=== PATIENT | female | born 1980 | race Two or more races ===

== ENCOUNTER 2019-10-03 14:40 | Emergency (ER) | payer MEDICAID ==
[~2019-10-03] VITALS: Ht 152.4 cm; Wt 61.7 kg
--- NOTE | 2019-10-03 14:42 | NUR ---
ED Nurse Note: Pt was [place] in by ambulance from grocery store s/p unwitnessed fall with RT sided impact on the ground, with complains of RT arm and LT hip pain. Pt is A&Ox4, gambian in speaking. Per EMS, pt denies dizziness, weakness nor head trauma. Pt's VSS, on RA, afebrile on triage. Placed on bed.
[2019-10-03 14:45] VITALS: BP 135/76
[2019-10-03] MEDS ORDERED: Ketorolac 30mg Inj IM ONE (15:00)
[2019-10-03] MEDS ORDERED: Methocarbamol 750mg tab ORAL ONE (15:00)
--- NOTE | 2019-10-03 15:19 | NUR ---
ED Nurse Note: pt was taken to CT, accompanied by tech.
--- NOTE | 2019-10-03 15:35 | NUR ---
ED Nurse Note: pt returned from ct on stable condition.
--- NOTE | 2019-10-03 17:05 | Emergency Room Report ---
History of Present Illness General Chief Complaint: Multiple Trauma/Fall Source: Patient Present Illness HPI 39-year-old female with no signal past medical history here status post fall. Reports that she slipped earlier and landed on her right forearm radiating pain in that area 10 out of 10. Also reports that she hit the back of her neck and lower back to the ground however denies any head injury or loss of consciousness. Rates the pain in neck and lower back 5 out of 10 without radiation. Patient is mobile and reports that the pain is now radiating down legs and denies any saddle paresthesia, urinary or bowel incontinence. Has not taken medication for symptom relief. Denies chest pain abdominal pain. Denies any vaginal bleeding. Denies and signs of waiver for further imaging. Allergies: Coded Allergies: No Known Allergies (Unverified , 10/03/19) COVID-19 Screening COVID-19 risk:Contact w/high r: No Has patient experienced blake: No COVID-19 Testing performed CERTIFIED NURSE AIDE: No Patient History Past Medical History: unable to obtain Past Surgical History: none Pertinent Family History: none Last Menstrual Period: UNK Immunizations: UTD Reviewed Nursing Documentation: PMH: Agreed; PSxH: Agreed Nursing Documentation-PMH Past Medical History: No Stated History Review of Systems All Other Systems: negative except mentioned in HPI Physical Exam Vital Signs Date Time Temp Pulse Resp B/P (MAP) Pulse Ox O2 Delivery O2 Flow Rate FiO2 10/03/19 14:36 98.8 85 17 135/76 (95) 96 Room Air Sp02 EP Interpretation: reviewed, normal General Appearance: normal inspection, alert, no apparent distress, GCS 15 Head: normocephalic, atraumatic Eyes: normal eye exam, PERRL, EOMI, lids + conjunctiva normal, no hyphema, no racoon eyes ENT: normal ENT inspection, TMs + canals normal, oropharynx normal, no roque signs Neck: normal inspection, supple/symm/no masses, trach midline, no bony tend, full range of motion without pain Respiratory: effort normal, no retractions, clear to auscultation, chest symmetrical, palpation of chest normal, speaking in full sentences Cardiovascular: regular rate, rhythm, no JVD Cardiovascular #2: 2+ carotid (R), 2+ carotid (L), 2+ radial (R), 2+ radial (L) , 2+ dorsalis pedis (R), 2+ dorsalis pedis (L) Gastrointestinal: normal inspection, non-tender, non-distended, no rebound/ guarding, normal bowel sounds Musculoskeletal: normal ROM, back normal, other - Right radial head tender to palpation Skin: no rash, no lacerations, normal palpation Lymphatic: normal inspection Neurologic: oriented x3, sensory intact, motor strength/tone normal, normal speech Psychiatric: normal inspection, memory normal, mood normal, no suicidal/ homicidal ideation Procedures Splinting Splinting : Consent: Verbal Location: Right forearm Hand-Made Type: plaster Splint: volar Pre-Proc Neuro Vasc Exam: normal Post-Proc Neuro Vasc Exam: normal Patient Tolerated: Well Complications: None Medical Decision Making PA Attestation All my diagnosis and treatment plans were reviewed ad discussed with my supervising physician Dr. Patrick Diagnostic Impression: Primary Impression: Radial head fracture Additional Impressions: Cervical strain Lumbar strain ER Course 39-year-old female with no signal past medical history here status post fall. Reports that she slipped earlier and landed on her right forearm radiating pain in that area 10 out of 10. Also reports that she hit the back of her neck and lower back to the ground however denies any head injury or loss of consciousness. Rates the pain in neck and lower back 5 out of 10 without radiation. Patient is mobile and reports that the pain is now radiating down legs and denies any saddle paresthesia, urinary or bowel incontinence. Has not taken medication for symptom relief. Denies chest pain abdominal pain. Denies any vaginal bleeding. Denies and signs of waiver for further imaging. Ddx considered but are not limited to: Lumbar spine sprain, strain, fracture, contusion, neuropathy, cervical sprain versus strain versus fracture, radial head fracture versus contusion versus sprain versus strain Vital signs: are WNL, pt. is afebrile H&PE are most consistent with: Radial head fracture, cervical strain, lumbar strain ORDERS: Lumbar CT scan, cervical spine CT scan, right forearm x-ray, ibuprofen, Robaxin ER intervention: Toradol, Tylenol, Robaxin. DISCHARGE: At this time pt. is stable for d/c to home. Will provide printed patient care instructions, and any necessary prescriptions. Care plan and follow up instructions have been discussed with the patient prior to discharge. Take medication as directed, follow primary care provider customer engineering specialist, if worsening symptoms return to the emergency room Other X-Ray Diagnostic Results Other X-Ray Diagnostic Results : X-Ray ordered: right forearm # of Views/Limited Vs Complete: 2 View Indication: Pain EP Interpretation: Yes Interpretation: no dislocation, no soft tissue swelling, other - fx radail head Impression: Other - fracture radial head Electronically Signed by: Omkar Romano PA-C CT/MRI/US Diagnostic Results CT/MRI/US Diagnostic Results #1: Imaging Test Ordered: CT C-spine no contrast Impression No acute changes CT/MRI/US Diagnostic Results #2: Imaging Test Ordered: CT L-spine no contrast Impression No acute changes Last Vital Signs Date Time Temp Pulse Resp B/P (MAP) Pulse Ox O2 Delivery O2 Flow Rate FiO2 10/03/19 15:28 98.8 10/03/19 14:45 17 135/76 96 Room Air 10/03/19 14:45 85 Disposition: HOME, SELF-CARE Condition: Stable Referrals: NOT CHOSEN IPA/,REFERRING (PCP) Patient Instructions: Cervical Strain and Sprain With [facility]hab[facility], Forearm Fracture With Rehab[facility], Lumbosacral Strain Additional Instructions: Take medication as directed, follow primary care provider customer engineering specialist , if worsening symptoms return to the emergency room Omkar Sorto Oct 03, 2019 17:05
--- NOTE | 2019-10-03 17:43 | Diagnostic Imaging Report ---
Indication: Neck pain status post injury Technique: CT cervical spine was performed utilizing automated exposure control without intravenous contrast material. Axial and coronal images were generated. CT dose: Total DLP 139.4 mGycm; CTDI vol 5.6 mGy Comparison: None Findings: No acute cervical spine fracture identified. There is nonspecific straightening of the cervical lordosis, without evidence of spondylolisthesis. Vertebral body heights are maintained; there is no evidence of compression fracture. There is no focus of significant bony central canal stenosis or bony foraminal narrowing. There is no prevertebral fluid collection or hematoma. Imaged airway is patent. The thyroid is normal in appearance. Imaged lung apices are clear. Mastoid air cells and visualized paranasal sinuses are clear. Imaged portions of the posterior fossa unremarkable in appearance. IMPRESSION: No evidence of acute cervical spine fracture. Nonspecific straightening of the cervical lordosis without evidence of spondylolisthesis. Findings may be related to positioning and/or muscle spasm. The CT scanner at [facility] is accredited by the [employer] and the scans are performed using protocols designed to limit radiation exposure to as low as reasonably achievable to attain images of sufficient resolution adequate for diagnostic evaluation.
--- NOTE | 2019-10-03 17:47 | Diagnostic Imaging Report ---
Indication: Back pain status post injury Technique: CT lumbar spine was performed utilizing automated exposure control without intravenous contrast material. Axial and coronal images were generated. CT dose: Total DLP 293.9 mGycm; CTDI vol 820 mGy Comparison: None Findings: There are 5 nonrib-bearing lumbar-type vertebral bodies, assuming 12 paired ribs. Total body heights are maintained; there is no evidence of compression fracture. Lumbar lordosis is maintained; there is no evidence of spondylolisthesis. There is no focus of significant bony central canal stenosis or bony foraminal narrowing. Tiny disc bulges noted at L4-5 and L5-S1 without associated significant/high-grade central canal or foraminal stenosis. Note that the discs and nerve roots are better evaluated on MRI, which can be obtained for more sensitive assessment as clinically indicated. The abdominal aorta is normal in caliber. Nonobstructing bilateral renal stones are seen. There is no evidence of hydronephrosis. There is bladder wall thickening which may be related to underdistention versus cystitis. Correlation with urinalysis recommended. Appendix is normal in caliber and there are no periappendiceal inflammatory changes. IMPRESSION: No evidence of acute fracture or traumatic malalignment. Nonobstructing bilateral renal stones. Bladder wall thickening which may related to underdistention versus cystitis. Consider correlation with urinalysis as clinically indicated. The CT scanner at [facility] is accredited by the [employer] and the scans are performed using protocols designed to limit radiation exposure to as low as reasonably achievable to attain images of sufficient resolution adequate for diagnostic evaluation.
[2019-10-03] MEDS ORDERED: IBU800 MG PO (17:53)
[2019-10-03] MEDS ORDERED: ROBAXIN-500MG ORAL (17:53)
[2019-10-03] MEDS ORDERED: LIDODERM700 M1 TOPIC (17:57)
[2019-10-03 18:19] VITALS: BP 134/74
--- NOTE | 2019-10-03 18:19 | Diagnostic Imaging Report ---
INDICATION: Pain TECHNIQUE: XRAY Forearm 2v R Multiple views of the right forearm were obtained COMPARISON: None FINDINGS: There is no acute fracture or dislocation. Joint spaces are maintained. There is mild soft tissue swelling overlying the dorsal aspect of the proximal forearm. IMPRESSION: No acute fracture or dislocation.
--- NOTE | 2019-10-03 18:19 | NUR ---
ER DISCHARGE NOTE: Patient is cleared to be discharged per ERPA, pt is aox4, on room air, with stable vital signs. pt was given dc and prescription instructions, pt was able to verbalize understanding, pt id band removed. pt is able to ambulate with steady gait. pt took all belongings.
== END 2019-10-03 18:19 | disposition home or self-care (01) ==
LOC: EDBD 14:40 → EMR 14:55
DX: S52.121A Displaced fracture of head of right radius, initial encounter for closed fracture (principal); N20.0 Calculus of kidney; M40.46 Postural lordosis, lumbar region; M51.26 Other intervertebral disc displacement, lumbar region; S16.1XXA Strain of muscle, fascia and tendon at neck level, initial encounter; S39.012A Strain of muscle, fascia and tendon of lower back, initial encounter; W01.0XXA Fall on same level from slipping, tripping and stumbling without subsequent striking against object, initial encounter; Y92.9 Unspecified place or not applicable
CPT/HCPCS: 29105; 72125; 72131; 73090; 96372; J1885; Z7502; 99284

== ENCOUNTER 2020-05-02 12:35 | Emergency (ER) | payer MEDICAID ==
[~2020-05-02] VITALS: Ht 152.4 cm; Wt 65.8 kg
[~2020-05-02 12:35] MED LIST: IBU800 MG PO; LIDODERM700 M1 TOPIC; ROBAXIN-500MG ORAL
[2020-05-02] MEDS ORDERED: DiphenhydrAMINE 50mg/ml Inj IVP ONE (13:15)
[2020-05-02] MEDS ORDERED: Metoclopramide 10mg/2ml Inj IVP ONE (13:15)
[2020-05-02] MEDS ORDERED: Ketorolac 30mg Inj IV ONE (13:15)
--- NOTE | 2020-05-02 13:16 | NUR ---
Patient reported that she has had a headache since last week Sunday and have used a whole bottle of Ibuprofen since then and her headache still has not subsided. No adverse medical history. Independently ambulatory. Jordanian speaking AABJ4. NKJordan
--- NOTE | 2020-05-02 13:16 | Emergency Room Report ---
History of Present Illness General Chief Complaint: Headache Source: Patient Present Illness HPI Patient is a 39-year-old female denies any significant past medical history who presents to the ER complaining of left-sided headache. Patient states that it started a week ago. She complains of a pulsating sensation. She states that it goes down her neck and feels pressure behind her eye. She denies any fever or chills. She denies any phonophobia or photophobia. She denies any chest pain or shortness of breath. She denies any focal weakness. She denies any trauma. She states that this was not a sudden onset headache. Patient states that she tried taking ibuprofen for the headache and that it is helped but that the headache returns and she has to take more ibuprofen. Allergies: Coded Allergies: No Known Allergies (Unverified , 10/03/19) COVID-19 Screening Contact w/high risk pt: No Experienced COVID-19 symptoms?: No COVID-19 Testing performed RAIL SPECIALIST: No Patient History Last Menstrual Period: 5 months Now: No : 4 Para: 4 Reviewed Nursing Documentation: PMH: Agreed; PSxH: Agreed Nursing Documentation-PMH Past Medical History: No Stated History Hx Cardiac Problems: No Hx Hypertension: No Hx Pacemaker: No Hx Asthma: No Hx COPD: No Hx Diabetes: No Hx Cancer: No Hx Gastrointestinal Problems: No Hx Dialysis: No History Of Psychiatric Problem: No Hx Neurological Problems: No Hx Cerebrovascular Accident: No Hx Seizures: No Review of Systems All Other Systems: negative except mentioned in HPI Physical Exam Vital Signs Date Time Temp Pulse Resp B/P (MAP) Pulse Ox O2 Delivery O2 Flow Rate FiO2 05/02/20 12:55 98.6 116 16 130/82 (98) 95 Room Air Sp02 EP Interpretation: reviewed, normal General Appearance: no apparent distress, alert, GCS 15, non-toxic Head: normocephalic, atraumatic Eyes: bilateral eye normal inspection, bilateral eye PERRL ENT: hearing grossly normal, normal pharynx, no angioedema, normal voice Neck: full range of motion, supple/symm/no masses Respiratory: chest non-tender, lungs clear, normal breath sounds, speaking full sentences Cardiovascular #1: regular rate, rhythm, no edema, other - Patient tachycardic in triage but current pulse 89 bpm Gastrointestinal: normal bowel sounds, non tender, soft, non-distended, no guarding, no rebound Rectal: deferred Genitourinary: no CVA tenderness Musculoskeletal: normal range of motion Neurologic: motor strength/tone normal, fish boning machine feeder III-XII nml as tested, distal neuro normal, oriented x3, sensory intact Psychiatric: no suicidal/homicidal ideation Skin: no rash Lymphatic: no adenopathy Medical Decision Making Diagnostic Impression: Primary Impression: Headache Additional Impression: Hypokalemia ER Course I suspect the headache that the patient is presenting with is non-emergent in etiology. Meningitis and encephalitis were considered unlikely given patient has no significant fever, focal neurological deficits, petechiae, seizure like symptoms, nuchal rigidity, kernig sign, or brudzinski sign. Ischemic and hemorrhagic CVA also considered unlikely given no new focal neurological deficits, amnesia, slurred speech, or aphasia. In addition, patient reports gradual onset of REES and not a sudden onset/severe REES so I highly doubt SAH. Head CT was negative for any acute abnormal findings and laboratory findings reviewed and showed no acute abnormalities suggestive of infection. The patient was counseled that, though unlikely, the possibility of an emergent cause of headache may still be present and that the patient should return immediately if symptoms persists or worsen. I believe the patient is stable for discharge to follow-up with their PMD. Laboratory Tests Test 05/02/20 13:14 White Blood Count 8.3 K/UL (4.8-10.8) Red Blood Count 4.99 M/UL (4.20-5.40) Hemoglobin 14.7 G/DL (12.0-16.0) Hematocrit 44.0 % (37.0-47.0) Mean Corpuscular Volume 88 FL (80-99) Mean Corpuscular Hemoglobin 29.5 PG (27.0-31.0) Mean Corpuscular Hemoglobin Concent 33.4 G/DL (32.0-36.0) Red Cell Distribution Width 12.4 % (11.6-14.8) Platelet Count 266 K/UL (150-450) Mean Platelet Volume 8.0 FL (6.5-10.1) Neutrophils (%) (Auto) 61.6 % (45.0-75.0) Lymphocytes (%) (Auto) 26.6 % (20.0-45.0) Monocytes (%) (Auto) 7.4 % (1.0-10.0) Eosinophils (%) (Auto) 3.1 % (0.0-3.0) H Basophils (%) (Auto) 1.3 % (0.0-2.0) Urine Color Pale yellow Urine Appearance Clear Urine pH 6.5 (4.5-8.0) Urine Specific [place] 1.010 (1.005-1.035) Urine Protein Negative (NEGATIVE) Urine Glucose (UA) Negative (NEGATIVE) Urine Ketones Negative (NEGATIVE) Urine Blood 1+ (NEGATIVE) H Urine Nitrite Negative (NEGATIVE) Urine Bilirubin Negative (NEGATIVE) Urine Urobilinogen Normal MG/DL (0.0-1.0) Urine Leukocyte Esterase 1+ (NEGATIVE) H Urine RBC 0-2 /HPF (0 - 2) Urine WBC 2-4 /HPF (0 - 2) Urine Squamous Epithelial Cells Few /LPF (NONE/OCC) Urine Bacteria Occasional /HPF (NONE) Sodium Level 139 MMOL/L (136-145) Potassium Level 3.2 MMOL/L (3.5-5.1) L Chloride Level 102 MMOL/L (98-107) Carbon Dioxide Level 26 MMOL/L (21-32) Anion Gap 11 mmol/L (5-15) Blood Urea Nitrogen 11 mg/dL (7-18) Creatinine 0.6 MG/DL (0.55-1.30) Estimated Glomerular Filtration Rate > 60 mL/min (>60) Glucose Level 135 MG/DL (74-106) H Calcium Level 9.2 MG/DL (8.5-10.1) Magnesium Level 2.3 MG/DL (1.8-2.4) Total Bilirubin 0.2 MG/DL (0.2-1.0) Aspartate Amino Transferase (AST) 46 U/L (15-37) H Alanine Aminotransferase (ALT) 97 U/L (12-78) H Alkaline Phosphatase 133 U/L (46-116) H Total Protein 8.3 G/DL (6.4-8.2) H Albumin 4.0 G/DL (3.4-5.0) Globulin 4.3 g/dL Albumin/Globulin Ratio 0.9 (1.0-2.7) L Human Chorionic Gonadotropin, Qual Negative (NEGATIVE) Urine Opiates Screen Negative (NEGATIVE) Urine Barbiturates Screen Negative (NEGATIVE) Phencyclidine (PCP) Screen Negative (NEGATIVE) Urine Amphetamines Screen Negative (NEGATIVE) Urine Benzodiazepines Screen Negative (NEGATIVE) Urine Cocaine Screen Negative (NEGATIVE) Urine Marijuana (THC) Screen Negative (NEGATIVE) Last Vital Signs Date Time Temp Pulse Resp B/P (MAP) Pulse Ox O2 Delivery O2 Flow Rate FiO2 05/02/20 12:55 98.6 116 16 130/82 (98) 95 Room Air Disposition: HOME, SELF-CARE Condition: Stable Scripts Metoclopramide Hcl* (REGLAN*) 10 Mg Tablet 10 MG ORAL THREE TIMES A DAY, #14 TAB Prov: Dottie Patrick M.D. 05/02/20 Ibuprofen* (MOTRIN*) 600 Mg Tablet 600 MG ORAL FOUR TIMES A DAY, #30 TAB 0 Refills Prov: Dottie Patrick M.D. 05/02/20 Referrals: NOT CHOSEN IPA/,REFERRING (PCP) Additional Instructions: The patient was provided with discharge instructions, notified to follow-up with a primary care doctor and or specialist in the next 24-48 hours, and to return to the ED if they have worsening of their symptoms. Please note that this report is being documented using [employer] technology. This can lead to erroneous entry secondary to incorrect interpretation by the dictating instrument. Dottie Patrick M.D. May 02, 2020 13:16
[2020-05-02 13:27] LABS: APPEARANCE,URINE CLEAR; BASOPHILS % (AUTO) 1.3 % (0.0-2.0); BILIRUBIN, URINE NEGATIVE (NEGATIVE); COLOR,URINE PALE YELLOW; EOSINOPHILS % (AUTO) 3.1 % (0.0-3.0); GLUCOSE, URINE (UA) NEGATIVE (NEGATIVE); HEMOGLOBIN 14.7 G/DL (12.0-16.0); KETONES,URINE NEGATIVE (NEGATIVE); LEUKOCYTE ESTERASE ,URINE 1+ (NEGATIVE); LYMPHOCYTES % (AUTO) 26.6 % (20.0-45.0); MEAN CORPUSCULAR VOLUME 88 FL (80-99); MONOCYTES % (AUTO) 7.4 % (1.0-10.0); NEUTROPHILS % (AUTO) 61.6 % (45.0-75.0); NITRITE,URINE NEGATIVE (NEGATIVE); PH,URINE 6.5 (4.5-8.0); PLATELET COUNT 266 K/UL (150-450); PROTEIN,URINE NEGATIVE (NEGATIVE); RED BLOOD COUNT 4.99 M/UL (4.20-5.40); RED CELL DISTRIBUTION WIDTH 12.4 % (11.6-14.8); UROBILINOGEN,URINE NORMAL MG/DL (0.0-1.0); WHITE BLOOD COUNT 8.3 K/UL (4.8-10.8)
[2020-05-02 13:37] LABS: ANION GAP 11 mmol/L (5-15); BLOOD UREA NITROGEN 11 mg/dL (7-18); CALCIUM 9.2 MG/DL (8.5-10.1); CARBON DIOXIDE 26 MMOL/L (21-32); CHLORIDE 102 MMOL/L (98-107); CREATININE 0.6 MG/DL (0.55-1.30); POTASSIUM 3.2 MMOL/L (3.5-5.1); SODIUM 139 MMOL/L (136-145)
[2020-05-02 13:42] LABS: ALANINE AMINOTRANSFERASE 97 U/L (12-78); ALBUMIN/GLOBULIN RATIO 0.9 (1.0-2.7); ALKALINE PHOSPHATASE 133 U/L (46-116); ASPARTATE AMINO TRANSFERASE 46 U/L (15-37); BILIRUBIN,TOTAL 0.2 MG/DL (0.2-1.0)
[2020-05-02 13:52] VITALS: BP 140/79
--- NOTE | 2020-05-02 13:56 | Diagnostic Imaging Report ---
EXAM: CT Head Without Intravenous Contrast CLINICAL HISTORY: Headache TECHNIQUE: Axial computed tomography images of the head/brain without intravenous contrast. CTDI is 53.4 mGy and DLP is 1045.5 mGy-cm. One or more of the following dose reduction techniques were used: automated exposure control, adjustment of the mA and/or kV according to patient size, use of iterative reconstruction technique. Coronal reformatted images were created and reviewed. COMPARISON: No relevant prior studies available. FINDINGS: Brain: Unremarkable. No evidence of acute intracranial hemorrhage. No significant white matter disease. No edema. No mass effect or midline shift. Ventricles: Unremarkable. No ventriculomegaly. Bones/joints: Unremarkable. No depressed skull fracture. Soft tissues: Unremarkable. Sinuses: Unremarkable as visualized. Visualized paranasal sinuses are clear. No sinus air-fluid levels. Mastoid air cells: Unremarkable as visualized. No mastoid effusion. IMPRESSION: Unremarkable noncontrast CT of the head/brain.
[2020-05-02] MEDS ORDERED: IBUPROFEN600 M1 ORAL (13:58)
[2020-05-02] MEDS ORDERED: REGLAN10 MG ORAL (13:58)
[2020-05-02 14:46] VITALS: BP 131/67
[2020-05-02 15:54] VITALS: BP 116/67
== END 2020-05-02 15:56 | disposition home or self-care (01) ==
LOC: EMR 13:12
DX: R51.9 Headache, unspecified (principal); E87.6 Hypokalemia
CPT/HCPCS: 36415; 70450; 80053; 80307; 81003; 83735; 84703; 85025; 96361; 96374; 96375; J1200; J1885; J2765; J7030; Z7502; 99284; J8499